=== PATIENT | male | born 1985 | race Caucasian/White ===

== ENCOUNTER → 2021-01-23 | Outpatient (CLI) | payer OTHER ==
[2021-01-23 15:16] LABS: Microalbumin, Urine Quant. 9.25 mg/L (0.000-20.000)
== END | disposition home or self-care (01) ==
LOC: LAB SHORT 12:10 → LAB 12:10
PROVIDERS: Family Medicine
DX: R80.9 Proteinuria, unspecified (principal)
CPT/HCPCS: 81050; 82043; 82570